=== PATIENT | male | born 1970 | race Caucasian/White ===

== ENCOUNTER 2020-09-01 16:35 | Emergency (ER) | payer BC, OTHER ==
[~2020-09-01] VITALS: Ht 182.9 cm; Wt 124.9 kg
[2020-09-01] MEDS ORDERED: SODIUM CHLORIDE 0.9% 1000ML 1,000 ML IV STA (17:01)
[2020-09-01] MEDS ORDERED: KETOROLAC TROMETHAMINE 30 MG/ML VIAL IV STA (17:09)
[2020-09-01] MEDS ORDERED: SODIUM CHLORIDE FLUSH 10 ML SYR INJ PRN (17:15)
[2020-09-01] MEDS ORDERED: SODIUM CHLORIDE 0.9% 50ML 50 ML ONE (17:28)
[2020-09-01] MEDS ORDERED: IOPAMIDOL 370 MG/ML 200 ML INFUS..BTL INJ ONE (17:28)
[2020-09-01] MEDS ORDERED: SODIUM CHLORIDE 0.9% 1000ML 1,000 ML ONE (17:40)
[2020-09-01] MEDS ORDERED: KETOROLAC TROMETHAMINE 30 MG/ML VIAL ONE (17:40)
[2020-09-01] MEDS ORDERED: LOSARTAN POTASS25 MG (18:29)
[2020-09-01] MEDS ORDERED: FENOFIBRATE145 MG (18:29)
[2020-09-01] MEDS ORDERED: CITALOPRAM HBR20 MG PO (18:29)
[2020-09-01] MEDS ORDERED: FLONASE ALLERG9.9 ML (18:29)
[2020-09-01] MEDS ORDERED: MONTELUKAST SOD10 MG PO (18:29)
[2020-09-01] MEDS ORDERED: PANTOPRAZOLE SO40 MG PO (18:29)
[2020-09-01] MEDS ORDERED: CETIRIZINE HCL5 MG (18:29)
[2020-09-01] MEDS ORDERED: CYCLOBENZAPRINE5 MG PO ×2 (19:14→19:27)
[2020-09-01] MEDS ORDERED: PREDNISONE20 MG PO ×2 (19:14→19:27)
== END 2020-09-01 19:45 | disposition home or self-care (01) ==
LOC: FSED 17:15
DX: R10.11 Right upper quadrant pain (principal); I10 Essential (primary) hypertension; K21.9 Gastro-esophageal reflux disease without esophagitis; F32.9 Major depressive disorder, single episode, unspecified
CPT/HCPCS: 74177; 80048; 80076; 81003; 85025; 96374; 99284; J1885; J7030; Q9967